=== PATIENT | female | born 1990 | race Caucasian/White ===

== ENCOUNTER 2019-11-26 18:39 | Emergency (ER) | payer OTHER, SELFPAY ==
--- NOTE | ~2019-11-26 | XR_ITS ---
EXAMINATION: XR ankle LT min 3V DATE: 11/26/2019 19:16 INDICATION: Left ankle pain TECHNIQUE: Anteroposterior, lateral, mortise, and additional oblique view of the ankle were obtained. COMPARISON: None. FINDINGS: Bone alignment is normal. There is no fracture. A plantar calcaneal enthesophyte is noted. The soft tissues are unremarkable. IMPRESSION: 1. No acute osseous abnormality. Reviewed, dictated and finalized at location A.
--- NOTE | ~2019-11-26 | XR_ITS ---
EXAMINATION: XR wrist LT min 3V DATE: 11/26/2019 19:16 INDICATION: Left wrist pain TECHNIQUE: Posteroanterior, ulnar deviation, oblique, and lateral views of the left wrist were obtain ed. COMPARISON: None available FINDINGS: There is no fracture, dislocation, or subluxation. The bones, soft tissues, and joint space s are normal. IMPRESSION: 1. No acute osseous abnormality. Reviewed, dictated and finalized at location A.
[2019-11-26 18:50] VITALS: BP 126/68; PULSE 108; RESP 20; TEMP 36.9; O2SAT 98
--- NOTE | 2019-11-26 19:33 | ED.FALL ---
HPI - Fall General Chief Complaint: Fall Stated Complaint: injury -fall left side History of Present Illness HPI Narrative: This is a 29 year old female that was at work and states she tripped over the cords after plugging in a bed she tripped. Patient is having severe pain when placing pressure on the foot and states that her foot has started to swell. Patient also complains of wrist pain on the right hurts in general Related Data Home Medications Medication Instructions Recorded Confirmed gabapentin 300 mg PO TID 11/26/19 11/26/19 trazodone 100 mg PO HS 11/26/19 11/26/19 Allergies Allergy/AdvReac Type Severity Reaction Status Date / Time chlorpheniramine Allergy Mild Hives / Verified 11/26/19 19:08 Red Face meloxicam Allergy Mild meloxicam Verified 11/26/19 19:08 ([id number]) pineapple Allergy Unknown pineapple Verified 11/26/19 19:08 ([id number]) Review of Systems Review of Systems: Narrative: CONSTITUTIONAL: Denies fever, chills, or sweats. EYES: Denies visual changes, redness, or discharge. ENT: Denies rhinorrhea, congestion, sore throat, or otalgia. CARDIOVASCULAR:Denies chest pain, palpitations, or edema. RESPIRATORY: Denies cough or dyspnea. GASTROINTESTINAL: Denies abdominal pain, nausea, vomiting, or diarrhea. GENITOURINARY: Denies dysuria or hematuria. SKIN:[Denies rash or itching. MUSCULOSKELETAL:Denies back pain,pain in right ankle area and right wrist joint pain, or myalgia. NEUROLOGIC: Denies headache, numbness, or weakness. PSYCHIATRIC:Denies anxiety or depression [facility] Family History Family History (Updated 01/04/19 @ 10:56 by DOCTOR UNKNOWN) Mother Family history of thyroid disease Diabetes mellitus Family history of multiple sclerosis Grandparent Family history of thyroid disease Diabetes mellitus Other Family history of malignant neoplasm Social History Social History Smoking status: Former smoker Smoking end date: 08/08/17 Alcohol intake: never Comments At time as signature, I have reviewed and agree with nursing past medical, social, surgical and family history. Please see nursing chart for further information. There is no relevant family history pertinent to the presenting complaint. Exam Narrative: Exam Narrative: GENERAL:Well-appearing, well-nourished, and in no acute distress. HEAD:Normocephalic, atraumatic. EYES: PERRLA and EOMI. ENT: Nares clear, no rhinorrhea or epistaxis. Mucous membranes moist. NECK: Supple. CHEST: Clear to auscultation. No respiratory distress. HEART: Regular rate and rhythm. No murmur heard. Normal peripheral pulses. ABDOMEN: Soft, nontender, nondistended, normal active bowel sounds. EXTREMITIES: Normal range of motion. left ankle had bruising noted with edema painful with ambulation. left wrist patient has pain she is able to rotate and move wrist back and forth without any difficulties. . SKIN: Warm, dry, no rash. NEURO: No focal deficits. Alert and oriented x3. Course Course Emergency Course: Patient is aware of diagnosis, understands and agrees to treatment plan. Anticipatory guidance given. Patient agrees to follow-up as directed and is aware of reasons to seek care at the emergency department. Vital Signs Vital signs: Vital Signs Temperature 98.5 F 11/26/19 18:50 Pulse Rate 108 H 11/26/19 18:50 Respiratory Rate 20 11/26/19 18:50 Blood Pressure 126/68 11/26/19 18:50 Pulse Oximetry 98 11/26/19 18:50 Temperature 98.5 F 11/26/19 18:50 Pulse Rate 108 H 11/26/19 18:50 Respiratory Rate 20 11/26/19 18:50 Blood Pressure 126/68 11/26/19 18:50 Pulse Oximetry 98 11/26/19 18:50 Discharge Plan Discharge Clinical Impression: Sprain and strain of left ankle, Sprain and strain of left wrist Patient Disposition: Home, Self-Care Condition: Stable Instructions: Antibiotic Form, Ankle Sprain (ED), Wrist Sprain (ED) Additional Instructions: Avoid weight bearing until
== END 2019-11-26 19:50 | disposition home or self-care (01) ==
PROVIDERS: Emergency Provider Nurse Practitioner Family
DX: S93.402A Sprain of unspecified ligament of left ankle, initial encounter (principal); S96.912A Strain of unspecified muscle and tendon at ankle and foot level, left foot, initial encounter; S63.502A Unspecified sprain of left wrist, initial encounter; S66.912A Strain of unspecified muscle, fascia and tendon at wrist and hand level, left hand, initial encounter; Z87.891 Personal history of nicotine dependence
CPT/HCPCS: 73110; 73610; 99214; G0463

== ENCOUNTER 2019-12-18 10:21 | Emergency (ER) | payer OTHER, SELFPAY ==
[2019-12-18 10:30] VITALS: BP 133/84; PULSE 90; RESP 20; TEMP 36.9; O2SAT 99
--- NOTE | 2019-12-18 10:33 | ED.URI ---
HPI - URI/Sore Throat General Chief Complaint: Upper Respiratory Infection Stated Complaint: sore throat Time Seen by Provider: 12/18/19 10:33 Source: patient and RN notes reviewed History of Present Illness HPI Narrative: Patient is a 29-year-old female that presents the urgent care with complaints of a sore throat for 4 days. Patient denies any fever, nausea, vomiting. 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 Patient states that she has an influx and post oropharynx drainage due to the salivary gland removal. No other acute complaints. Denies any exposure to COVID. No acute distress noted. Patient read the plan of care. Related Data Home Medications Medication Instructions Recorded Confirmed gabapentin 300 mg PO TID 11/26/19 12/18/19 trazodone 100 mg PO BID 11/26/19 12/18/19 duloxetine 30 mg PO DAILY 12/18/19 12/18/19 etonogestrel [Nexplanon] 1 implant SUBDERMAL ONCE 12/18/19 12/18/19 naproxen 500 mg PO BID 12/18/19 12/18/19 Allergies Allergy/AdvReac Type Severity Reaction Status Date / Time chlorpheniramine Allergy Mild Hives / Verified 12/18/19 10:42 Red Face meloxicam Allergy Hives Verified 12/18/19 10:42 Review of Systems Review of Systems: Narrative: CONSTITUTIONAL: Denies fever, chills, or sweats. EYES: Denies visual changes, redness, or discharge. ENT: Reports of sore throat CARDIOVASCULAR: Denies chest pain, palpitations, or edema. RESPIRATORY: Denies cough or dyspnea. GASTROINTESTINAL: Denies abdominal pain, nausea, vomiting, or diarrhea. GENITOURINARY: Denies dysuria or hematuria. SKIN: Denies rash or itching. MUSCULOSKELETAL: Denies back pain, joint pain, or myalgia. NEUROLOGIC: Denies headache, numbness, or weakness. All other systems reviewed are negative, except as documented in HPI. [facility] Family History Family History (Updated 01/04/19 @ 10:56 by DOCTOR UNKNOWN) Mother Family history of thyroid disease Diabetes mellitus Family history of multiple sclerosis Grandparent Family history of thyroid disease Diabetes mellitus Other Family history of malignant neoplasm Social History Social History Smoking status: Former smoker Smoking end date: 08/08/17 Alcohol intake: never Comments At the time of my signature, I reviewed and agree with the nursing past medical, surgical, social, and family history. There is no relevant family history pertinent to the patient complaint. Exam Narrative: Exam Narrative: GENERAL: This is a well-nourished, well-developed patient, in no apparent distress. HEAD: normocephalic, atraumatic. EYES: PERRL. Sclera clear/white. Vision is grossly intact. EARS: External ears normal, auditory canals clear and without drainage, TMs normal without perforation. Hearing grossly intact. NOSE: External nose normal with no obvious nasal discharge, nares without redness, no rhinorrhea. THROAT: Mucous membranes moist, mild erythema noted to posterior oropharynx without exudate or ulceration. Moderate postnasal drainage. NECK: Neck supple CARDIOVASCULAR: Regular rate and rhythm without murmurs, gallops, or rubs. RESPIRATORY: Clear to auscultation. Breath sounds equal bilaterally. No wheezes, rales, or rhonchi. SKIN: warm, intact with no suspicious lesions or rash, good texture and turgor. NEURO: awake, alert, and oriented to person, place and time. There were no obvious focal neurologic abnormalities. EXTREMITIES: No clubbing, cyanosis, or edema. Course Vital Signs Vital signs: Vital Signs Temperature 98.5 F 12/18/19 10:30 Pulse Rate 90 12/18/19 10:30 Respiratory Rate 12/18/19 10:30 Blood Pressure 133/84 12/18/19 10:30 Pulse Oximetry 99 12/18/19 10:30 Temperature 98.5 F 12/18/19 10:30 Pulse Rate 90 12/18/19 10:30 Respiratory Rate 12/18/19 10:30 Blood Pressure 133/84 12/18/19 10:30 Pulse Oximetry 99 12/18/19 10:30 Reviewed MDM - URI/Sore Throat MDM Narrative Medical
== END 2019-12-18 10:53 | disposition home or self-care (01) ==
PROVIDERS: Emergency Provider Nurse Practitioner Family; PCP Family Medicine
DX: J02.0 Streptococcal pharyngitis (principal); Z85.819 Personal history of malignant neoplasm of unspecified site of lip, oral cavity, and pharynx; Z87.891 Personal history of nicotine dependence; Z92.21 Personal history of antineoplastic chemotherapy; Z92.3 Personal history of irradiation
CPT/HCPCS: 87880; 99213; G0463

== ENCOUNTER 2019-12-22 19:18 | Emergency (ER) | payer OTHER, SELFPAY ==
[2019-12-22 19:23] VITALS: BP 133/88; PULSE 113; RESP 18; TEMP 37.2; O2SAT 99
--- NOTE | 2019-12-22 20:09 | ED.GENADULT ---
HPI - General Adult General Chief complaint: Skin/Abscess/Foreign Body Stated complaint: sore under left arm Time Seen by Provider: 12/22/19 20:09 Source: patient and RN notes reviewed Mode of arrival: ambulatory Limitations: no limitations History of Present Illness HPI narrative: 29-year-old female presents with complaints of lesion to RT axilla with mild redness, tenderness, and swelling for the past 2 days. Swelling and tenderness increased over the past 24 hours. Currently on Amoxicillin for Strep throat has 6 more days before completion, otherwise no other treatment. Tender to touch. No drainage. History of skin abscess with I&D. Azeb denies being , LMP unknown due to Nexplanon implant. Denies fever or chills. Denies diarrhea, nausea, vomiting, and abdominal pain. Tolerating po intake well. Denies headaches, weakness, fatigue, myalgia, or facial swelling. Denies chest pain or dyspnea. Denies cough, rhinorrhea, congestion, sore throat. Denies recent traveling. Denies concern for COVID-19 or exposures been home since [id number] order except for essential household needs, working, and return home. Some parts of this dictation were generated by voice recognition software and may contain typographical and/or grammatical inaccuracies. Related Data Home Medications Medication Instructions Recorded Confirmed gabapentin 300 mg PO TID 11/26/19 12/22/19 trazodone 100 mg PO BID 11/26/19 12/22/19 duloxetine 30 mg PO DAILY 12/18/19 12/22/19 etonogestrel [Nexplanon] 1 implant SUBDERMAL ONCE 12/18/19 12/22/19 ketorolac 10 mg PO DAILY 12/22/19 12/22/19 Allergies Allergy/AdvReac Type Severity Reaction Status Date / Time chlorpheniramine Allergy Mild Hives / Verified 12/18/19 10:42 Red Face meloxicam Allergy Hives Verified 12/18/19 10:42 Review of Systems Review of Systems: Narrative: CONSTITUTIONAL: Denies fever, chills, sweats. EYES: Denies visual changes, redness, discharge. ENT: Denies rhinorrhea, congestion, sore throat, otalgia. CARDIOVASCULAR: Denies chest pain, palpitations, edema. RESPIRATORY: Denies dyspnea, wheezing, cough. GASTROINTESTINAL: Denies abdominal pain, nausea, vomiting, diarrhea. GENITOURINARY: Denies dysuria, hematuria, abnormal discharge. SKIN: Denies rash or itching. Right axilla with mid redness, tenderness, and swelling. No drainage. MUSCULOSKELETAL: Denies acute back pain, joint pain, or myalgia. NEUROLOGIC: Denies numbness or focal weakness. PSYCHIATRIC: Denies anxiety or depression. All systems reviewed & are unremarkable except as noted in HPI and below. 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, saliva glands, and teeth removed, last surgery 04/2019 Family History Family History Mother Family history of thyroid disease Diabetes mellitus Family history of multiple sclerosis Grandparent Family history of thyroid disease Diabetes mellitus Other Family history of malignant neoplasm Social History Social History (Updated 12/23/19 @ 12:10 by HARMEET Zamora) Smoking status: Former smoker Smoking end date: 08/08/17 Alcohol intake: current Alcohol use details: occasionally Substance use: never Living arrangements: with family Occupation/Education: occupation Gender identity (if verbalized by the patient): Female
== END 2019-12-22 20:20 | disposition home or self-care (01) ==
PROVIDERS: Emergency Provider Nurse Practitioner Family; PCP Family Medicine
DX: L02.411 Cutaneous abscess of right axilla (principal); Z87.891 Personal history of nicotine dependence
CPT/HCPCS: 99213; G0463

== ENCOUNTER 2020-01-28 19:08 | Emergency (ER) | payer OTHER, SELFPAY ==
--- NOTE | 2020-01-28 19:15 | ED.GENADULT ---
HPI - General Adult General Stated complaint: knot on clavical Source: patient and RN notes reviewed Mode of arrival: ambulatory Limitations: no limitations Related Data Home Medications Medication Instructions Recorded Confirmed gabapentin 300 mg PO TID 11/26/19 12/22/19 trazodone 100 mg PO BID 11/26/19 12/22/19 duloxetine 30 mg PO DAILY 12/18/19 12/22/19 etonogestrel [Nexplanon] 1 implant SUBDERMAL ONCE 12/18/19 12/22/19 ketorolac 10 mg PO DAILY 12/22/19 12/22/19 Allergies Allergy/AdvReac Type Severity Reaction Status Date / Time chlorpheniramine Allergy Mild Hives / Verified 12/18/19 10:42 Red Face meloxicam Allergy Hives Verified 12/18/19 10:42 Review of Systems Review of Systems: Narrative: CONSTITUTIONAL: Denies malaise, chills, sweats, or fever. EYES: Denies visual changes, redness, or discharge. ENT: Denies rhinorrhea, congestion, sinus pain, otalgia or sore throat. CARDIOVASCULAR: Denies chest pain, palpitations, or edema. RESPIRATORY: Denies cough or dyspnea. GASTROINTESTINAL: Denies abdominal pain, nausea, vomiting, diarrhea, bloody, or mucous stools. GENITOURINARY: Denies dysuria or hematuria. SKIN: Denies rash or itching. MUSCULOSKELETAL: Denies back pain, joint pain, or myalgia. NEUROLOGIC: Denies numbness, weakness, or headache. PSYCHIATRIC: Denies anxiety or depression. All systems reviewed & are unremarkable except as noted in HPI and below PMF[facility] Past Medical History Medical History (Updated 12/23/19 @ 12:44 by HARMEET Zamora) Abscess of axilla, left Anxiety Back pain Carpal tunnel syndrome, bilateral upper limbs Malignant neoplasm mouth floor Received radiation and chemotherapy Nerve damage Nicotine dependence, cigarettes, uncomplicated quit 2 years ago Surgical History Surgical History (Updated 12/23/19 @ 12:12 by HARMEET Zamora) History of carpal tunnel surgery X2 History of cholecystectomy History of incision and drainage History of mandibular surgery X3 due to 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 There is no relevant family history pertinent to the presenting complaint Exam Narrative: Exam Narrative: GENERAL: Well-appearing, well-nourished, and in no acute distress. HEAD: Normocephalic, atraumatic. EYES: PERRLA, conjunctivae clear, and EOMI. No nystagmus. ENT: Nares clear, turbinates pink, no rhinorrhea or epistaxis. Mucous membranes moist. TM pearly bauer with sharp light reflex bilaterally; no tragal tenderness. Oropharynx without erythema or lesions. Tonsils not enlarged and without exudate. NECK: Supple. No lymphadenopathy. No jugular venous distension, thyromegaly, or carotid bruits. Carotids were easily palpable bilaterally. CHEST: No respiratory distress. Clear to auscultation. No bony deformities, no asymmetry. Speaks in full sentences. HEART: Regular rate and rhythm. No murmur heard. Normal peripheral pulses. ABDOMEN: Soft, nontender, nondistended, normal active bowel sounds, no palpable masses. EXTREMITIES: Normal range of motion. No edema. Normal strength and sensation. SKIN: Warm, dry, no rash. NEURO: Alert and oriented x3. No focal deficits. Cranial nerves II through XII grossly intact PSYCH: Normal mood and affect Course Course Emergency Course: Patient is aware of diagnosis, understands and agrees to treatment plan. Anticipatory guidance given. Patient agrees to follow-up as directed and is aware of reasons to seek care at the emergency department. Portions of this record may have been created with voice recognition software
[2020-01-28 19:24] VITALS: BP 146/95; PULSE 116; RESP 20; TEMP 37.3; O2SAT 98
--- NOTE | 2020-01-28 19:28 | PC.NURSE ---
Pt. left without seeing provider, states that she would rather go to ED for care. Pt. ambulatory upon departure in no apparent distress.
== END 2020-01-28 19:28 | disposition left against medical advice (07) ==
LOC: EXPBETH 19:19
PROVIDERS: Emergency Provider Nurse Practitioner
DX: Z53.21 Procedure and treatment not carried out due to patient leaving prior to being seen by health care provider (principal)
CPT/HCPCS: 99199